=== PATIENT | female | born 1955 | race Hispanic/Latino ===

== ENCOUNTER → 2019-11-24 | Day surgery (SDC) | payer BC, MEDICARE ==
[2019-11-18 14:03] LABS: BASOPHILS % 0.3 % (0.0-1.0); EOSINOPHILS # (AUTO) 0.1 (0.0-0.4); EOSINOPHILS % 0.6 % (0.0-6.0); HEMATOCRIT 41.4 % (34.2-44.1); HEMOGLOBIN 14.1 g/dL (12.0-16.0); LYMPHOCYTES # (AUTO) 2.1 (1.0-3.2); LYMPHOCYTES % 22.6 % (18.0-39.1); MEAN CORPUSCULAR HGB CONC 34.1 g/dL (31-35); MONOCYTES # (AUTO) 0.6 (0.2-0.8); MONOCYTES % 6.6 % (4.4-11.3); NEUTROPHILS # (AUTO) 6.5 (2.1-6.9); NEUTROPHILS % 69.5 % (38.7-80.0); PLATELET COUNT 282 x10e3/uL (140-360); RED BLOOD COUNT 4.55 x10e6/uL (3.6-5.1); RED CELL DISTRIBUTION WIDTH 12.8 % (11.7-14.4)
[~2019-11-24] MED LIST: EPHEDRINE SULFATE INJ 50 MG/ML VIAL ONE; FENTANYL CITRATE/PF 100MCG/2 ML INJ ONE; HYOSCYAMINE 0.125 MG TAB ONE; LIDOCAINE HCL 2% LOCAL INJ 5 ML SDV VIAL INJ ONE; LISINOPRIL-HCT1 EACH PO; MIDAZOLAM HCL 2 MG/2 ML VIAL ONE; NIFEDIPINE ER30 M1 PO; PHENYLEPHRINE HCL 1% 10 MG/ML VIAL ONE; PROPOFOL IV EMULSION 10 MG/ML 50 ML VIAL ONE
[2019-11-24 13:15] VITALS: BP 121/86
--- NOTE | 2019-11-24 20:14 | Operative Report ---
DATE OF PROCEDURE: 11/24/2019 SURGEON: Oscar Turner MD PROCEDURE PERFORMED: Colonoscopy with polypectomy. INDICATIONS FOR PROCEDURE: Colorectal cancer screening, positive Cologuard test. MEDICATIONS: The patient was done under MAC, please see anesthesiologist's note. PROCEDURE IN DETAIL: With the patient in left lateral decubitus position, a flexible fiberoptic Olympus colonoscope was inserted into the rectum with ease and advanced all the way to the cecum. It was then withdrawn slowly. Mucosa overlying the cecum and ascending colon appeared to be within normal limits. One polyp was hot biopsied from the transverse colon. One polyp was hot biopsied from the descending colon. Diverticular disease was noted in the sigmoid colon. Two polyps were hot snared. Two polyps were hot biopsied from the sigmoid colon. A large sessile laterally spreading rectal mass was noted approximately 5 cm from the anal verge was approximately 2.5 cm in size that was partially resected with hot biopsy forceps and two hemoclips were applied. The scope was then retroflexed into the distal rectum and moderate-sized internal hemorrhoids were noted none of which was actively bleeding. The scope was then straightened out. It was subsequently withdrawn. The patient tolerated the procedure well. IMPRESSION: 1. Transverse colon polyp, hot biopsied. 2. Descending colon polyp, hot biopsied. 3. Diverticulosis. 4. Sigmoid colon polyps x4, two hot biopsied and two hot snared. 5. Rectal mass approximately 5 cm proximal to the anal verge was lateral spreading approximately 2.5 cm in size, partially resected with the hot snare and hemoclipped x2. The scope was then retroflexed into the distal rectum and moderate-sized internal hemorrhoids were noted none of which was actively bleeding. The scope was then straightened out, it was subsequently withdrawn. The patient tolerated the procedure well. PLAN: Followup histology. If mass was benign, we will proceed with a flex-sig in 3-4 weeks to remove any residual tissue in the rectum. Oscar Turner MD [facility] /[id number] cc: Jalen Card MD
== END | disposition home or self-care (01) ==
LOC: OR 08:17
PROVIDERS: ATTEND Internal Medicine Gastroenterology
DX: Z12.11 Encounter for screening for malignant neoplasm of colon (principal); D12.8 Benign neoplasm of rectum; D12.4 Benign neoplasm of descending colon; D12.5 Benign neoplasm of sigmoid colon; D12.3 Benign neoplasm of transverse colon; K21.9 Gastro-esophageal reflux disease without esophagitis; I10 Essential (primary) hypertension; K57.30 Diverticulosis of large intestine without perforation or abscess without bleeding; K62.89 Other specified diseases of anus and rectum; K64.8 Other hemorrhoids; Z01.810 Encounter for preprocedural cardiovascular examination; Z01.812 Encounter for preprocedural laboratory examination
CPT/HCPCS: 36415; 45384; 45385; 85025; 93005; J2001; J2250; J2370; J2704; J3010; 45378

== ENCOUNTER 2020-02-06 09:37 | Inpatient (IN) | payer BC, MEDICARE, OTHER ==
[~2020-02-06] VITALS: Ht 160 cm; Wt 58.5 kg
[~2020-02-06 09:37] MED LIST changes: -EPHEDRINE SULFATE INJ 50 MG/ML VIAL ONE; -FENTANYL CITRATE/PF 100MCG/2 ML INJ ONE; -HYOSCYAMINE 0.125 MG TAB ONE; -LIDOCAINE HCL 2% LOCAL INJ 5 ML SDV VIAL INJ ONE; -MIDAZOLAM HCL 2 MG/2 ML VIAL ONE; -PHENYLEPHRINE HCL 1% 10 MG/ML VIAL ONE; -PROPOFOL IV EMULSION 10 MG/ML 50 ML VIAL ONE
[2020-02-06] MEDS ORDERED: SODIUM CHLORIDE 0.9% 1000ML 1,000 ML IV STA ×2 (10:12)
[2020-02-06] MEDS ORDERED: AZITHROMYCIN 500MG/NS 250 ML 250 ML IV ONE (10:12)
[2020-02-06] MEDS ORDERED: ACETAMINOPHEN 325 MG TAB PO ONE (10:15)
[2020-02-06] MEDS ORDERED: CEFEPIME HCL 1 GM VIAL IV SCH (10:15)
[2020-02-06 10:38] LABS: BASOPHILS % 0.3 % (0.0-1.0); EOSINOPHILS % 0.3 % (0.0-6.0); LYMPHOCYTES # (AUTO) 1.9 (1.0-3.2); LYMPHOCYTES % 16.9 % (18.0-39.1); MEAN CORPUSCULAR HEMOGLOBIN 29.9 pg (28-32); MEAN CORPUSCULAR HGB CONC 34.9 g/dL (31-35); MEAN CORPUSCULAR VOLUME 85.8 fL (81-99); MONOCYTES # (AUTO) 0.3 (0.2-0.8); MONOCYTES % 2.9 % (4.4-11.3); NEUTROPHILS # (AUTO) 9.1 (2.1-6.9); NEUTROPHILS % 78.9 % (38.7-80.0); PLATELET COUNT 170 x10e3/uL (140-360); RED BLOOD COUNT 5.01 x10e6/uL (3.6-5.1); RED CELL DISTRIBUTION WIDTH 11.8 % (11.7-14.4)
[2020-02-06] MEDS: CEFEPIME 1GM/NS 0.9% 50 ML 50 ML IV SCH ×2 (10:49→22:30)
[2020-02-06 10:51] LABS: CLARITY,URINE CLOUDY (CLEAR); COLOR,URINE ORANGE (YELLOW); LEUKOCYTE ESTERASE ,URINE NEGATIVE (NEGATIVE); NITRITE,URINE NEGATIVE (NEGATIVE)
[2020-02-06 10:52] LABS: BILIRUBIN,URINE SMALL (NEGATIVE); KETONES,URINE 1+ (NEGATIVE); PROTEIN,URINE DIPSTICK 2+ (NEGATIVE); URINE UROBILINOGEN 4 mg/dL (0.2 - 1)
[2020-02-06 10:56] LABS: INR 0.9; PROTHROMBIN TIME 12.7 seconds (11.9-14.5)
[2020-02-06 11:05] LABS: ALANINE AMINOTRANSFERASE 204 IU/L (0-55); ALBUMIN 3.2 g/dL (3.5-5.0); ALBUMIN/GLOBULIN RATIO 0.9 (0.8-2.0); ALKALINE PHOSPHATASE 146 IU/L (40-150); ANION GAP 16.8 mmol/L (8-16); BLOOD UREA NITROGEN 16 mg/dL (7-26); BUN/CREATININE RATIO 21 (6-25); CALCIUM 8.5 mg/dL (8.4-10.2); CARBON DIOXIDE 22 mmol/L (22-29); CHLORIDE 95 mmol/L (98-107); CREATINE KINASE 63 IU/L (29-168); CREATININE, SERUM 0.75 mg/dL (0.57-1.11); EST GLOMERULAR FILTRATION RATE > 60 ML/MIN (60-); GLUCOSE 116 mg/dL (74-118); SODIUM 131 mmol/L (136-145)
[2020-02-06 11:12] LABS: RBC,URINE 0-5 /HPF (0-5)
[2020-02-06 11:13] LABS: BACTERIA,URINE MANY /HPF; EPITHELIAL CELLS,URINE MODERATE /LPF
[2020-02-06] MEDS ORDERED: POTASSIUM CHLORIDE 20 MEQ TAB CR PO ONE ×3 (11:13→16:00)
[2020-02-06 11:14] LABS: POTASSIUM 2.8 mmol/L (3.5-5.1)
[2020-02-06] MEDS ORDERED: POTASSIUM CHLORIDE 20MEQ/100ML 100 ML IV ONE (11:15)
--- NOTE | 2020-02-06 13:00 | NUR ---
reconciled patients home medications.
--- NOTE | 2020-02-06 13:09 | Diagnostic Imaging Report ---
EXAMINATION: CT of the chest, abdomen and pelvis with contrast. TECHNIQUE: Spiral CT images of the chest, abdomen and pelvis were performed from the lung apices to the lesser trochanters after the intravenous administration of 100 cc of Isovue 300 and the oral administration of water. Coronal and sagittal reformatted images were obtained. COMPARISON: None. CLINICAL HISTORY:Hypotension, fever, generalized weakness DISCUSSION: CHEST: LINES/TUBES: None. LUNGS AND AIRWAYS: Linear atelectatic changes in the lateral anterior right lower lobe (series 6, image 52). Additional linear opacities consistent with subsegmental atelectasis are noted in bilateral lower lobes (for example series 6, image 71 and 77). No consolidations, pulmonary nodules or masses. Airways are clear, without bronchial lesions. PLEURA: No effusion or pneumothorax. HEART AND MEDIASTINUM: 6 mm hypodense nodule in the left thyroid lobe (series 5, image 9). Likely 1.3 cm hypodense nodule in the inferior aspect of the left thyroid lobe (series 5, image 16), however, evaluation limited by streak artifact. Heart size is upper limit of normal to borderline enlarged. No pericardial effusion. Aorta is nonaneurysmal. Main pulmonary artery is normal in caliber. LYMPH NODES: No mediastinal, hilar or axillary lymphadenopathy. BONES AND SOFT TISSUES: No aggressive lytic or suspicious focal sclerotic lesions. No soft tissue abnormalities. 5 mm calcified lesion in the left breast (series 5, image 50), likely represents a calcified fibroadenoma. ABDOMEN/PELVIS: HEPATOBILIARY: No focal hepatic lesions. No intra or extrahepatic biliary ductal dilation. GALLBLADDER: Cholecystectomy clips. SPLEEN: No splenomegaly. PANCREAS: No focal masses or ductal dilatation. 3.5 x 2.6 x 2.3 cm structure with air-fluid level between the pancreatic uncinate process and third portion of the duodenum consistent with a duodenal diverticulum. ADRENALS: No adrenal nodules. KIDNEYS/URETERS: No hydronephrosis, stones, or solid mass lesions. 2.4 x 2.3 x 2.1 cm fluid density simple cyst in the left superior pole (series 2, image 55). Additional subcentimeter hypodensities in the left kidney are too small to characterize but statistically likely represent small cysts. PELVIC ORGANS/BLADDER: Bladder and uterus are unremarkable. No adnexal masses. PERITONEUM/RETROPERITONEUM: No free air or fluid. LYMPH NODES: No intra-abdominal,retroperitoneal, pelvic or inguinal lymphadenopathy. VESSELS: The celiac trunk,superior and inferior mesenteric and bilateral renal arteries are patent The portal, superior mesenteric and splenic veins are patent. Atherosclerotic calcification of the distal abdominal aorta and proximal vessels. GI TRACT: No bowel dilation or evidence of obstruction. No pericolonic inflammatory changes. Appendix is well identified and normal in caliber. Distal descending and sigmoid colon diverticulosis, without diverticulitis. BONES AND SOFT TISSUES: No aggressive lytic or suspicious focal sclerotic lesions. Grade 1 anterolisthesis of L5 on S1 secondary to bilateral pars interarticularis defects. Soft tissues are grossly unremarkable. IMPRESSION: 1. No acute abnormality in the chest, abdomen and pelvis. 2. Atelectatic changes in bilateral lower lobes, as described. No consolidations/pneumonia or masses. 3. No bowel dilation or evidence of obstruction. Distal descending and sigmoid colon diverticulosis, without diverticulitis. Signed by: Dr. Khurram Ramirez M.D. on 02/06/2020 1:06 PM
[2020-02-06] MEDS ORDERED: POTASSIUM CHLO10 ME1 PO (13:14)
--- NOTE | 2020-02-06 13:25 | NUR ---
Potassium degressed to 5meq/hr because patient was complaining that infusion was buring.
--- OUTSIDE RECORDS SUMMARY | 2020-02-06 14:03 | XMS REPORT ---
Author Author [facility] t Organization [facility] Address [address] [place] [id number] Phone Unavailable Care Team Providers Care [address] Vendor Name Role Phone Mili COATS [employer] Unavailable Problems This patient has no known problems. Allergies, Adverse Reactions, Alerts This patient has no known allergies or adverse reactions. Medications This patient has no known medications. Procedures This patient has no known procedures. Results Test Description Test Time Test Comments Results Result Comments Source CT ABDOMEN/PELVIS W 2020-02-06 12:50:00 [place] [address] Patient Name: ONI TRONCOSO MR #: [id number] : 1955 Age/Sex: 64/F Req #: [id number] Adm Physician: Ordered by: THOMAS COATS DO Report #: [id number] Location: ER Room/Bed: Procedure: [id number] CT/CT ABDOMEN/PELVIS W Exam Date: 02/06/20 Exam Time: 1220 REPORT STATUS: Signed EXAMINATION: CT of the chest, abdomen and pelvis with contrast. TECHNIQUE: Spiral CT images of the chest, abdomen and pelvis were performed from the lung apices to the lesser trochanters after the intravenous administration of 100 cc of Isovue 300 and the oral administration of water. Coronal and sagittal reformatted images were obtained. COMPARISON: None. CLINICAL HISTORY:Hypotension, fever, generalized weakness DISCUSSION: CHEST: LINES/TUBES: None. LUNGS AND AIRWAYS: Linear atelectatic changes in the lateral anterior right lower lobe (series 6, image 52). Additional linear opacities consistent with subsegmental atelectasis are noted in bilateral lower lobes (for example series 6, image 71 and 77). No consolidations, pulmonary nodules or masses. Airways are clear, without bronchial lesions. PLEURA: No effusion or pneumothorax. HEART AND MEDIASTINUM: 6 mm hypodense nodule in the left thyroid lobe (series 5, image 9). Likely 1.3 cm hypodense nodule in the inferior aspect of the left thyroid lobe (series 5, image 16), however, evaluation limited by streak artifact. Heart size is upper limit of normal to borderline enlarged. No pericardial effusion. Aorta is nonaneurysmal. Main pulmonary artery is normal in caliber. LYMPH NODES: No mediastinal, hilar or axillary lymphadenopathy. BONES AND SOFT TISSUES: No aggressive lytic or suspicious focal sclerotic lesions. No soft tissue abnormalities. 5 mm calcified lesion in the left breast (series 5, image 50), likely represents a calcified fibroadenoma. ABDOMEN/PELVIS: HEPATOBILIARY: No focal hepatic lesions. No intra or extrahepatic biliary ductal dilation. GALLBLADDER: Cholecystectomy clips. SPLEEN: No splenomegaly. PANCREAS: No focal masses or ductal dilatation. 3.5 x 2.6 x 2.3 cm structure with air-fluid level between the pancreatic uncinate process and third portion of the duodenum consistent with a duodenal diverticulum. ADRENALS: No adrenal nodules. KIDNEYS/URETERS: No hydronephrosis, stones, or solid mass lesions. 2.4 x 2.3 x 2.1 cm fluid density simple cyst in the left superior pole (series 2, image 55). Additional subcentimeter hypodensities in the left kidney are too small to characterize but statistically likely represent small cysts. PELVIC ORGANS/BLADDER: Bladder and uterus are unremarkable. No adnexal masses. PERITONEUM/RETROPERITONEUM: No free air or fluid. LYMPH NODES: No intra-abdominal,retroperitoneal, pelvic or inguinal lymphadenopathy. VESSELS: The celiac trunk,superior and inferior mesenteric and bilateral renal arteries are patent The portal, superior mesenteric and splenic veins are patent. Atherosclerotic calcification of the distal abdominal aorta and proximal vessels. GI TRACT: No bowel dilation or evidence of obstruction. No pericolonic inflammatory changes. Appendix is well identified and normal in caliber. Distal descending and sigmoid colon diverticulosis, without diverticulitis. BONES AND SOFT TISSUES: No aggressive lytic or suspicious focal sclerotic lesions. Grade 1 anterolisthesis of L5 on S1 secondary to bilateral pars interarticularis defects. Soft tissues are grossly unremarkable. IMPRESSION: 1. No acute abnormality in the chest, abdomen and pelvis. 2. Atelectatic changes in bilateral lower lobes, as described. No consolidations/pneumonia or masses. 3. No bowel dilation or evidence of obstruction. Distal descending and sigmoid colon diverticulosis, without diverticulitis. Signed by: Dr. Ari Ramirez M.D. on 02/06/2020 1:06 PM Dictated By: ARI RAMIREZ MD 1306 Transcribed By: YAMILA on 02/06/20 1306 COPY TO: THOMAS COATS DO CT CHEST W 2020-02-06 12:50:00 [place] [address] Patient Name: ONI TRONCOSO MR #: [id number] : 1955 Age/Sex: 64/F Req #: [id number] Adm Physician: Ordered by: THOMAS COATS DO Report #: [id number] Location: ER Room/Bed: Procedure: [id number] CT/CT CHEST W Exam Date: 02/06/20 Exam Time: 1220 REPORT STATUS: Signed EXAMINATION: CT of the chest, abdomen and pelvis with contrast. TECHNIQUE: Spiral CT images of the chest, abdomen and pelvis were performed from the lung apices to the lesser trochanters after the intravenous administration of 100 cc of Isovue 300 and the oral administration of water. Coronal and sagittal reformatted images were obtained. COMPARISON: None. CLINICAL HISTORY:Hypotension, fever, generalized weakness DISCUSSION: CHEST: LINES/TUBES: None. LUNGS AND AIRWAYS: Linear atelectatic changes in the lateral anterior right lower lobe (series 6, image 52). Additional linear opacities consistent with subsegmental atelectasis are noted in bilateral lower lobes (for example series 6, image 71 and 77). No consolidations, pulmonary nodules or masses. Airways are clear, without bronchial lesions. PLEURA: No effusion or pneumothorax. HEART AND MEDIASTINUM: 6 mm hypodense nodule in the left thyroid lobe (series 5, image 9). Likely 1.3 cm hypodense nodule in the inferior aspect of the left thyroid lobe (series 5, image 16), however, evaluation limited by streak artifact. Heart size is upper limit of normal to borderline enlarged. No pericardial effusion. Aorta is nonaneurysmal. Main pulmonary artery is normal in caliber. LYMPH NODES: No mediastinal, hilar or axillary lymphadenopathy. BONES AND SOFT TISSUES: No aggressive lytic or suspicious focal sclerotic lesions. No soft tissue abnormalities. 5 mm calcified lesion in the left breast (series 5, image 50), likely represents a calcified fibroadenoma. ABDOMEN/PELVIS: HEPATOBILIARY: No focal hepatic lesions. No intra or extrahepatic biliary ductal dilation. GALLBLADDER: Cholecystectomy clips. SPLEEN: No splenomegaly. PANCREAS: No focal masses or ductal dilatation. 3.5 x 2.6 x 2.3 cm structure with air-fluid level between the pancreatic uncinate process and third portion of the duodenum consistent with a duodenal diverticulum. ADRENALS: No adrenal nodules. KIDNEYS/URETERS: No hydronephrosis, stones, or solid mass lesions. 2.4 x 2.3 x 2.1 cm fluid density simple cyst in the left superior pole (series 2, image 55). Additional subcentimeter hypodensities in the left kidney are too small to characterize but statistically likely represent small cysts. PELVIC ORGANS/BLADDER: Bladder and uterus are unremarkable. No adnexal masses. PERITONEUM/RETROPERITONEUM: No free air or fluid. LYMPH NODES: No intra-abdominal,retroperitoneal, pelvic or inguinal lymphadenopathy. VESSELS: The celiac trunk,superior and inferior mesenteric and bilateral renal arteries are patent The portal, superior mesenteric and splenic veins are patent. Atherosclerotic calcification of the distal abdominal aorta and proximal vessels. GI TRACT: No bowel dilation or evidence of obstruction. No pericolonic inflammatory changes. Appendix is well identified and normal in caliber. Distal descending and sigmoid colon diverticulosis, without diverticulitis. BONES AND SOFT TISSUES: No aggressive lytic or suspicious focal sclerotic lesions. Grade 1 anterolisthesis of L5 on S1 secondary to bilateral pars interarticularis defects. Soft tissues are grossly unremarkable. IMPRESSION: 1. No acute abnormality in the chest, abdomen and pelvis. 2. Atelectatic changes in bilateral lower lobes, as described. No consolidations/pneumonia or masses. 3. No bowel dilation or evidence of obstruction. Distal descending and sigmoid colon diverticulosis, without diverticulitis. Signed by: Dr. Ari Ramirez M.D. on 02/06/2020 1:06 PM Dictated By: ARI RAMIREZ MD 1303 Transcribed By: YAMILA on 02/06/20 1300 COPY TO: THOMAS COATS DO
--- NOTE | 2020-02-06 15:16 | Emergency Department Note ---
History of Present Illnes History of Present Illness Chief Complaint: General Medicine Complaints History of Present Illness This is a 64 year old female arrived to the ED with complaints of generalized malaise and weakness. Pt with marked hypotension Historian: Patient Arrival Mode: Car Additional Treatment SHIPPING SUPPORT CLERK: n/a Onset (how long ago): day(s) (3 day) Severity: mild Duration (how long): day(s) (3 days) Timing of current episode: constant Progression: worsening Context: recent illness, recent surgery, recent immobilization, recent travel, trauma/injury, new medications, hx of DVT/PE, non-compliance w/ medications, ot her Relieving factors: none Treatments prior to arrival: none Past Medical/Family History Physician Review I have reviewed the patient's past medical and family history. Any updates have been documented here. Past Medical History Recent Fever: Yes Clinical Suspicion of Infectio: No New/Unexplained Change in Ment: No Past Medical History: Hypertension, UTI's, GERD Other Medical History: denies Past Surgical History: Cholecysctectomy Other Surgery: cyst removal from vocal cord Social History Smoking Cessation: Never Smoker Counseling Performed: No Alcohol Use: None Any Illegal Drug Use: No TB Exposure/Symptoms: No Physically hurt or threatened: No Family History Family history of heart diseas: Yes Other Last Tetanus: unkown Any Pre-Existing Lines (PICC,: No Is patient up to date on immun: No Last Flu: utd Last Pneumovax: utd Review of Systems Review of Systems Constitutional: fever, malaise, weakness, other (ill appearing and low bp) EENTM: no symptoms Cardiovascular: no symptoms Respiratory: no symptoms Gastrointestinal: no symptoms Genitourinary: no symptoms Musculoskeletal: no symptoms Neurological: no symptoms Psychological: no symptoms Endocrine: no symptoms Hematological/Lymphatic: no symptoms Review of other systems All other systems reviewed and negative. Physical Exam Related Data Allergies: Coded Allergies: No Known Allergies (Unverified , 11/18/19) Triage Vital Signs Vital Signs Date Time Temp Pulse Resp B/P (MAP) Pulse Ox O2 Delivery O2 Flow Rate FiO2 02/06/20 10:07 100.3 58 18 70/53 95 Vital signs reviewed: Yes Physical Exam CONSTITUTIONAL Constitutional: well-developed, well-nourished, ill appearing (generalized weakness and low bp ) HENT HENT: normocephalic, atraumatic, oropharynx clear/moist, nose normal HENT L/R: left ext ear normal, right ext ear normal EYES Eyes: PERRL, conjunctivae normal NECK Neck: ROM normal PULMONARY Pulmonary: effort normal, breath sounds normal CARDIOVASCULAR Cardiovascular: regular rhythm, heart sounds normal, capillary refill normal, normal rate GASTROINTESTINAL Abdominal: soft; nontender (generalized abd discomfort on exam minimal ); bowel sounds normal GENITOURINARY Genitourinary: exam deferred SKIN Skin: warm, dry MUSCULOSKELETAL Musculoskeletal: ROM normal NEUROLOGICAL Neurological: alert, oriented x 3, no gross motor or sensory deficits PSYCHOLOGICAL Psychological: mood/affect normal, judgement normal Exam - additional comments Chief Complaint Comment Patient presents to the ER with a complaint of fever, generalized weakness and left ear pain for 6 days. Patient was seen at her primary MD for her left ear pain and she was given antibiotics. Patient is a/ox3 and appears in to be in no acute distress. Results Laboratory Result Diagram: 02/06/20 1020 02/06/20 1020 Laboratory Laboratory Tests Test 02/06/20 10:41 02/06/20 10:20 White Blood Count 11.51 x10e3/uL (4.8-10.8) Red Blood Count 5.01 x10e6/uL (3.6-5.1) Hemoglobin 15.0 g/dL (12.0-16.0) Hematocrit 43.0 % (34.2-44.1) Mean Corpuscular Volume 85.8 fL (81-99) Mean Corpuscular Hemoglobin 29.9 pg (28-32) Mean Corpuscular Hemoglobin Concent 34.9 g/dL (31-35) Red Cell Distribution Width 11.8 % (11.7-14.4) Platelet Count 170 x10e3/uL (140-360) Neutrophils (%) (Auto) 78.9 % (38.7-80.0) Lymphocytes (%) (Auto) 16.9 % (18.0-39.1) Monocytes (%) (Auto) 2.9 % (4.4-11.3) Eosinophils (%) (Auto) 0.3 % (0.0-6.0) Basophils (%) (Auto) 0.3 % (0.0-1.0) Neutrophils # (Auto) 9.1 (2.1-6.9) Lymphocytes # (Auto) 1.9 (1.0-3.2) Monocytes # (Auto) 0.3 (0.2-0.8) Eosinophils # (Auto) 0.0 (0.0-0.4) Basophils # (Auto) 0.0 (0.0-0.1) Absolute Immature Granulocyte (auto 0.08 x10e3/uL (0-0.1) Prothrombin Time 12.7 seconds (11.9-14.5) Prothromb Time International Ratio 0.90 Urine Color [place] (YELLOW) Urine Clarity Cloudy (CLEAR) Urine pH 6 (5 - 7) Urine Specific [place] 1.025 (1.010-1.025) Urine Protein 2+ (NEGATIVE) Urine Glucose (UA) Negative (NEGATIVE) Urine Ketones 1+ (NEGATIVE) Urine Blood Negative (NEGATIVE) Urine Nitrite Negative (NEGATIVE) Urine Bilirubin Small (NEGATIVE) Urine Urobilinogen 4 mg/dL (0.2 - 1) Urine Leukocyte Esterase Negative (NEGATIVE) Urine RBC 0-5 /HPF (0-5) Urine WBC 11-20 /HPF (0-5) Urine Epithelial Cells Moderate /LPF (NONE) Urine Bacteria Many /HPF (NONE) Sodium Level 131 mmol/L (136-145) Potassium Level 2.8 mmol/L (3.5-5.1) Chloride Level 95 mmol/L (98-107) Carbon Dioxide Level 22 mmol/L (22-29) Anion Gap 16.8 mmol/L (8-16) Blood Urea Nitrogen 16 mg/dL (7-26) Creatinine 0.75 mg/dL (0.57-1.11) Estimat Glomerular Filtration Rate > 60 ML/MIN (60-) BUN/Creatinine Ratio 21 (6-25) Glucose Level 116 mg/dL (74-118) Lactic Acid Level 1.7 mmol/L (0.5-2.0) Calcium Level 8.5 mg/dL (8.4-10.2) Total Bilirubin 1.0 mg/dL (0.2-1.2) Aspartate Amino Transf (AST/SGOT) 265 IU/L (5-34) Alanine Aminotransferase (ALT/SGPT) 204 IU/L (0-55) Alkaline Phosphatase 146 IU/L (40-150) Creatine Kinase 63 IU/L (29-168) Creatine Kinase MB 0.40 ng/mL (0-5.0) Troponin I 0.043 ng/mL (0-0.300) Total Protein 6.7 g/dL (6.5-8.1) Albumin 3.2 g/dL (3.5-5.0) Globulin 3.5 g/dL (2.3-3.5) Albumin/Globulin Ratio 0.9 (0.8-2.0) Lab results reviewed: Yes Imaging Impressions ct brain IMPRESSION: 1. No acute abnormality in the chest, abdomen and pelvis. 2. Atelectatic changes in bilateral lower lobes, as described. No consolidations/pneumonia or masses. 3. No bowel dilation or evidence of obstruction. Distal descending and sigmoid colon diverticulosis, without diverticulitis. Signed by: Dr. Ari Cueva M.D. on 02/06/2020 1:06 PM Dictated By: ARI CUEVA MD [address] ct abd IMPRESSION: 1. No acute abnormality in the chest, abdomen and pelvis. 2. Atelectatic changes in bilateral lower lobes, as described. No consolidations/pneumonia or masses. 3. No bowel dilation or evidence of obstruction. Distal descending and sigmoid colon diverticulosis, without diverticulitis. Signed by: Dr. Ari Cueva M.D. on 02/06/2020 1:06 PM Dictated By: ARI CUEVA MD 1306 Transcribed By: YAMILA on 02/06/20 1306 Critical Care Time Subsequent provider I assumed direction of critical care for this patient from another provider of my specialty. Assessment & Plan Reassessment Reassessment 64y f presented to ed c/o gen weakness low bp no feeling well fo several days - noted low bp pt ill appearing - concern for sepsis - lab EKG ct dick ct abd orderted - Assessment & Plan Final Impression: (1) Hypotension (2) Hypokalemia (3) Elevated LFTs Assessment & Plan discussed lab ct results plan of care and need for admit pt agrees spoke /w Dr Card will admit Depart Disposition: ADMITTED Last Vital Signs Date Time Temp Pulse Resp B/P (MAP) Pulse Ox O2 Delivery O2 Flow Rate FiO2 02/06/20 14:20 70 16 100 02/06/20 13:10 95/56 02/06/20 11:12 98.7 Home Meds Reported Medications Potassium Chloride (POTASSIUM CHLORIDE) 10 Meq Tab.er.prt, 10 MEQ PO DAILY, TAB 02/06/20 Lisinopril/Hydrochlorothiazide (LISINOPRIL-HCTZ 20-12.5 MG TAB) 1 Each Tablet, 1 TAB PO DAILY 11/18/19 Nifedipine (NIFEDIPINE ER) 30 Mg Tab.er.24, 30 MG PO DAILY 11/18/19 Medications in the ED Sodium Chloride 1,000 ml @ 0 mls/hr Q0M STAT IV Last administered on 02/06/20at 10:45; Admin Dose 999 MLS/HR; Start 02/06/20 at 10:12; Stop 02/06/20 at 10:20; Status DC Sodium Chloride 1,000 ml @ 0 mls/hr Q0M STAT IV Last administered on 02/06/20at 10:45; Admin Dose 999 MLS/HR; Start 02/06/20 at 10:12; Stop 02/06/20 at 10:20; Status DC Acetaminophen 650 mg ONCE ONCE PO Last administered on 02/06/20at 10:47; Admin Dose 650 MG; Start 02/06/20 at 10:15; Stop 02/06/20 at 10:23; Status DC Cefepime HCl 1 gm Q12H IV ; Start 02/06/20 at 10:15; Stop 02/06/20 at 10:24; Status DC Azithromycin 250 ml @ 200 mls/hr NOW ONCE IV Last administered on 02/06/20at 11:15; Admin Dose 200 MLS/HR; Start 02/06/20 at 10:12; Stop 02/06/20 at 11:26; Status DC THOMAS COATS, February 06, 2020 15:33
[2020-02-06] MEDS ORDERED: POTASSIUM CHLORIDE 20 MEQ TAB CR PO STA (15:35)
--- NOTE | 2020-02-06 18:28 | NUR ---
Received patient from ER. Respiration even and unlabored without SOB. Call light in reach. Denies pain at this time. Patient ambulates around the room with non-skid socks on.
[2020-02-06 20:00] VITALS: BP 107/65
[2020-02-06 21:00] VITALS: BP 107/65
[2020-02-06] MEDS ORDERED: SODIUM CHLORIDE 0.9% 250ML 250 ML ONE (22:04)
[2020-02-06] MEDS ORDERED: IOPAMIDOL 370 MG/ML 200 ML INFUS..BTL INJ ONE (22:15)
[2020-02-06] MEDS ORDERED: SODIUM CHLORIDE 0.9% 50ML 50 ML ONE (22:15)
[2020-02-07] VITALS (9 sets, daily range): BP systolic 103–107; BP diastolic 50–65
--- NOTE | 2020-02-07 04:11 | NUR ---
Call placed to Dr. Card for pt temp noted at 102.1 via answering service.
[2020-02-07] MEDS: ACETAMINOPHEN 325 MG TAB PO PRN ×2 (04:40→11:24)
[2020-02-07 05:41] LABS: BASOPHILS % 0.2 % (0.0-1.0); HEMATOCRIT 33.2 % (34.2-44.1); HEMOGLOBIN 11.6 g/dL (12.0-16.0); LYMPHOCYTES % 20.9 % (18.0-39.1); MEAN CORPUSCULAR HEMOGLOBIN 30.9 pg (28-32); MEAN CORPUSCULAR HGB CONC 34.9 g/dL (31-35); MEAN CORPUSCULAR VOLUME 88.3 fL (81-99); MONOCYTES # (AUTO) 0.2 (0.2-0.8); MONOCYTES % 2.5 % (4.4-11.3); NEUTROPHILS # (AUTO) 7.3 (2.1-6.9); NEUTROPHILS % 75.5 % (38.7-80.0); PLATELET COUNT 147 x10e3/uL (140-360); RED BLOOD COUNT 3.76 x10e6/uL (3.6-5.1)
[2020-02-07 06:02] LABS: ALANINE AMINOTRANSFERASE 177 IU/L (0-55); ALBUMIN 2.6 g/dL (3.5-5.0); ALKALINE PHOSPHATASE 107 IU/L (40-150); ANION GAP 14.6 mmol/L (8-16); BLOOD UREA NITROGEN 11 mg/dL (7-26); BUN/CREATININE RATIO 20 (6-25); CALCIUM 7.3 mg/dL (8.4-10.2); CARBON DIOXIDE 20 mmol/L (22-29); CHLORIDE 104 mmol/L (98-107); CREATINE KINASE 80 IU/L (29-168); CREATININE, SERUM 0.56 mg/dL (0.57-1.11); EST GLOMERULAR FILTRATION RATE > 60 ML/MIN (60-); GLUCOSE 97 mg/dL (74-118); POTASSIUM 3.6 mmol/L (3.5-5.1); SODIUM 135 mmol/L (136-145)
--- NOTE | 2020-02-07 07:00 | NUR ---
received bedside report. pt is alert oob, no s/s of distress. call light within reach and instructed pt to call RN for help
[2020-02-07 08:11] LABS: BAND NEUTROPHILS % (MANUAL) 4 %; LYMPHOCYTES % (MANUAL) 14 % (19-48); MONOCYTES % (MANUAL) 2 % (3.4-9.0); NEUTROPHILS % (MANUAL) 79 % (40-74); PLATELET ESTIMATE ADEQUATE; PLATELET MORPHOLOGY COMMENT NORMAL; RBC MORPHOLOGY COMMENT NORMAL
[2020-02-07] MEDS: CEFEPIME 1GM/NS 0.9% 50 ML 50 ML IV SCH ×2 (09:03→22:30)
--- NOTE | 2020-02-07 12:09 | Consultation ---
DATE OF CONSULTATION: REASON FOR CONSULTATION: Fever and chills. HISTORY OF PRESENT ILLNESS: This patient is a 64-year-old female, who comes in with fever and chills, earache on the left side. The patient has been sick for a week, came to the emergency room. She is not feeling well. The patient comes in and started on antibiotic. She is complaining also of congestion and she said she is feeling better. When she first came, her white count was 11.5, hemoglobin 15, and hematocrit 43. Sodium 135 and potassium was 2.8 on admission. The patient is being admitted and I am asked to see her. Her COVID-19 is negative. PHYSICAL EXAMINATION: GENERAL: She is currently alert and oriented. Does not seem to be in acute distress. VITAL SIGNS: T-max 100.3. HEENT: She is not icteric. NECK: Supple. CHEST: Clear bilateral. HEART: S1 and S2. No S3, S4, or murmur. ABDOMEN: Soft. Bowel sounds present. No tenderness. EXTREMITIES: No edema. SKIN: No rash. PAST MEDICAL HISTORY: Hypertension. PAST SURGICAL HISTORY: Cholecystectomy. ALLERGIES: NKA. SOCIAL HISTORY: There is no smoking, drug abuse, or alcohol abuse. FAMILY HISTORY: Otherwise hypertension. REVIEW OF SYSTEMS: Besides the congestion and ear pain, which actually better today, she denies any. She had a CAT scan of abdomen and pelvis, which was . She had a CAT scan of the chest, which also showed no acute finding. PHYSICAL EXAMINATION: GENERAL: She is currently alert and oriented. Does not seem to be in acute distress. VITAL SIGNS: Stable, currently afebrile. HEENT: She is not icteric. NECK: Supple. CHEST: Clear. HEART: S1 and S2. No S3, S4, or murmur. ABDOMEN: Soft. IMPRESSION: Fever, concerned about sinusitis. We will put her on Rocephin 2 g q.[address] of the sinuses. Await blood cultures. Recheck CBC. Recheck chem panel. Discussed with the patient. We will follow. MD CAMERON Telles/MELVIN /[id number]
--- NOTE | 2020-02-07 13:09 | History and Physical ---
CHIEF COMPLAINT: A 64-year-old female patient comes in with high fever and decreased blood pressure. HISTORY OF PRESENT ILLNESS: Ms. Winter Mac started out with some nighttime fevers, came to see the office, complains of some left ear pain and failure. The patient did not have any symptoms and was not treated with antibiotics. The patient had a blood workup done. The white count was normal. Sedimentation rate was elevated and CRP was elevated. The patient continues to have fever and on the day of admission, the patient had low blood pressure, feels fatigued, feels tired, taken nifedipine, lisinopril, and potassium and came to emergency room, was admitted to the hospital. Initially, sepsis workup was done. Lactic acid was negative and white count was not too elevated. The patient is admitted to the hospital for fever of normal origin and leukocytosis. PAST MEDICAL HISTORY: History of hypertension. MEDICATIONS: She takes at home lisinopril, hydrochlorothiazide, nifedipine, and potassium chloride. FAMILY HISTORY: Positive for father, mother and brother with acute myocardial infarction, heart disease, otherwise negative. SOCIAL HISTORY: No EtOH. No IV drug abuse. No history of smoking either. REVIEW OF SYSTEMS: Negative for chest pains. No shortness of breath. No palpitations. No arthralgias. no MYALGIAS. No tenderness anywhere in the body except for a two that she describes in the left molars. Otherwise, no sinus tenderness. No sinus pain. No congestion. No cough. No leg pains. No pain on ambulation and no abdominal pain and/or bleeds. No vaginal bleeds either. PHYSICAL EXAMINATION: VITAL SIGNS: On arrival, temperature 97.5, today temperature is 100.9 is T-max, respirations of 19, blood pressure is 107/65, and pulse oximetry of 99% on room air. HEENT: Normocephalic, atraumatic. Pupils reactive to light and accommodation. CVS: S1 and S2 normal. Regular rate and rhythm. No murmurs present. ABDOMEN: Nontender, nondistended. EXTREMITIES: No clubbing, no cyanosis, no edema. Calf; no calf tenderness, no calf pain present either. LABORATORY VALUES: Initial white count of 11.5 with left shift 9.1, and hemoglobin and hematocrit are normal. Chemistries; sodium is 131, potassium of 2.8, and chloride of 95. AST and ALT of 265 and 204. Troponin is less than 0.043. Lactic acid is 1.7. Coags are normal. Repeat, today's white count is 9.69 after Maxipime. Hemoglobin 11.6 and hematocrit of 33.2. Chemistries; sodium 135, potassium is up to 3.6, EGFR is about 60. Liver enzymes are trending down. IMAGING STUDIES: CT of the chest and CT of the abdomen and pelvis, did not reveal any abnormalities focusing on fever. ASSESSMENT: 1. Fever of unknown origin. 2. Leukocytosis. 3. Hypertension. 4. Hyponatremia. 5. Hypokalemia probably from diuresis. 6. Elevated liver function tests. PLAN: Volume status is normal at this time. The patient's vital signs are stable. Going to have acute hepatitis panel, probably viral in etiology. We will continue to monitor the patient. Consult with Dr. Wagner has been done. Further recommendation per clinical course. We will follow the patient's white count and also wait for cultures, which were done after admission and administration of antibiotics. Further recommendation per clinical course. We will continue to monitor the patient and also await Dr. Wagner's consultation. MD DENG Julio/MODL /[id number]
--- NOTE | 2020-02-07 18:01 | NUR ---
pt is sleeping on the bedside couch, no s/s of distress noted
--- NOTE | 2020-02-07 19:24 | NUR ---
Received pt in bed awake, no s/sx of distress no c/o of at this time. IVF infusing no diff, bed in low position, call light and personal items within reach.
[2020-02-08] VITALS: BP 113/55
[2020-02-08] MEDS: ACETAMINOPHEN 325 MG TAB PO PRN (01:22)
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
[2020-02-08 04:00] VITALS: BP 107/62
[2020-02-08 06:23] LABS: BASOPHILS % 0.4 % (0.0-1.0); EOSINOPHILS % 0.1 % (0.0-6.0); HEMATOCRIT 36.4 % (34.2-44.1); HEMOGLOBIN 12.7 g/dL (12.0-16.0); LYMPHOCYTES % 28.4 % (18.0-39.1); MEAN CORPUSCULAR HGB CONC 34.9 g/dL (31-35); MEAN CORPUSCULAR VOLUME 88.8 fL (81-99); MONOCYTES # (AUTO) 0.5 (0.2-0.8); MONOCYTES % 4.5 % (4.4-11.3); NEUTROPHILS # (AUTO) 6.8 (2.1-6.9); NEUTROPHILS % 65.8 % (38.7-80.0); PLATELET COUNT 189 x10e3/uL (140-360); RED CELL DISTRIBUTION WIDTH 12.1 % (11.7-14.4)
[2020-02-08 06:44] LABS: ALANINE AMINOTRANSFERASE 151 IU/L (0-55); ALBUMIN 2.8 g/dL (3.5-5.0); ALBUMIN/GLOBULIN RATIO 0.9 (0.8-2.0); ALKALINE PHOSPHATASE 126 IU/L (40-150); ANION GAP 13.3 mmol/L (8-16); BLOOD UREA NITROGEN 7 mg/dL (7-26); BUN/CREATININE RATIO 12 (6-25); CALCIUM 8.5 mg/dL (8.4-10.2); CARBON DIOXIDE 22 mmol/L (22-29); CHLORIDE 104 mmol/L (98-107); CREATININE, SERUM 0.57 mg/dL (0.57-1.11); EST GLOMERULAR FILTRATION RATE > 60 ML/MIN (60-); GLUCOSE 87 mg/dL (74-118); POTASSIUM 3.3 mmol/L (3.5-5.1); SODIUM 136 mmol/L (136-145)
[2020-02-08 06:57] LABS: BAND NEUTROPHILS % (MANUAL) 8 %; LYMPHOCYTES % (MANUAL) 24 % (19-48); MONOCYTES % (MANUAL) 3 % (3.4-9.0); NEUTROPHILS % (MANUAL) 63 % (40-74); PLATELET ESTIMATE ADEQUATE; PLATELET MORPHOLOGY COMMENT NORMAL; RBC MORPHOLOGY COMMENT NORMAL
--- NOTE | 2020-02-08 07:00 | NUR ---
received bedside report. pt is alert resting bed, no s/s of distress. call light within reach and instructed pt to call RN for help
--- NOTE | 2020-02-08 07:33 | Progress Note ---
DATE: SUBJECTIVE: The patient is a 64-year-old female, who came in with fever and hypertensive episode. The patient currently has a low-grade fever, apparently at 100. No other complaints. No chest pain or shortness of breath. No nausea. No vomiting. No diarrhea. OBJECTIVE: VITAL SIGNS: Temperature is 97.3, T-max of 100.8, pulse of 89, blood pressure is 107/62, pulse oximetry of 96% on room air. HEENT: Normocephalic and atraumatic. Pupils are reactive. Sinuses are congested and tender. CVS: S1 and S2 normal. Regular rhythm. ABDOMEN: Nontender and nondistended. EXTREMITIES: No clubbing, no cyanosis, no edema. IMAGING STUDIES: Head CT still pending. Chest CT and abdominal CT were mentioned for was normal. MICROBIOLOGY: No growth in blood cultures. LABORATORY VALUES: White count has come down to 10.38, hemoglobin of 12.7, hematocrit 36.4. Chemistries are within normal limits. Potassium is 3.3, BUN of 7, creatinine of 0.57. ASSESSMENT: Ms. Winter Mac with: 1. Fever, probably sinus type sinusitis in origin. White count has come down. The patient is feeling better, although she has a low-grade fever, and also awaiting CT scan. 2. Hypertension with hypertensive episode. The patient was on lisinopril, hydrochlorothiazide. We will go and take off the lisinopril and hydrochlorothiazide, and just put on nifedipine 30. 3. Potassium will be held back. At this time, we will replace potassium for today of 20 mEq p.o. We will continue monitoring the patient, possibly can be discharged on Augmentin if it is okay with Dr. Wagner. Further recommendation per clinical course. We will continue to monitor the patient. Currently, the patient is on cefepime. MD DENG Julio/VALERIEL /[id number]
[2020-02-08 07:37] VITALS: BP 116/69
[2020-02-08 07:40] VITALS: BP 116/69
[2020-02-08] MEDS ORDERED: POTASSIUM CHLORIDE 20 MEQ TAB CR PO ONE (07:45)
[2020-02-08] MEDS: CEFEPIME 1GM/NS 0.9% 50 ML 50 ML IV SCH (09:30)
--- NOTE | 2020-02-08 09:38 | Progress Note ---
DATE: SUBJECTIVE: The patient is seen and evaluated, available labs and notes reviewed. Discussed with Dr. Wagner. Discussed with staff. REVIEW OF SYSTEMS: No nausea, vomiting, fever, chills, chest pain, shortness of breath, headaches, rash, dysuria, or diarrhea. OBJECTIVE: VITAL SIGNS: Temperature 97.9, pulse is 79, respirations 16, blood pressure 116/69, maximum temperature was 100.8 last night, midnight. GENERAL: Alert and oriented, in no acute distress. Ambulatory. CV: S1, S2. CHEST: Equal expansion. Clear to auscultation. No acute distress. ABDOMEN: Soft, nontender. No distention. HEENT: Moist. No pallor. No JVD. EXTREMITIES: Moves all. MEDICATIONS: The patient is on cefepime. LABORATORY STUDIES: White count of 10.38, hemoglobin 12.7, platelet 189. Sodium 136, potassium 3.3, creatinine 0.57. Serology coronavirus PCR not detected. Hepatitis panel is pending. Microbiology; blood culture on 02/05 is negative 24 hours. RADIOLOGY STUDIES: CT of the chest from 02/05, showed no acute abnormality in the chest, abdomen, or pelvis. CT of the face is pending. ASSESSMENT AND PLAN: Fever. Consider sinusitis. Follow up with CT of the face to evaluate the sinuses. Microbiology studies negative so far. White counts are within normal limit. Continue monitor the patient clinically and follow up with the labs. Discharge planning possibly in progress depending on the facial CT. Attending progress note from today noted in regard to discharge antibiotics. Discussed with the nurse. Please refer to chart for more information. Discussed with Dr. Wagner in detail. Dictated by Adriano Breaux PA-C (Al) Arley Wagner MD /MODL /[id number]
--- NOTE | 2020-02-08 10:03 | Diagnostic Imaging Report ---
CT MAXIO FAC/PARANAS WO HISTORY: Sinusitis COMPARISON: None. TECHNIQUE: CT of the sinuses was performed without intravenous contrast. Coronal and sagittal reformations were created. One or more of the following dose reduction techniques were used: Automated exposure control, adjustment of the mA and/or kV according to patient size, and/or utilization of iterative reconstruction technique. DISCUSSION: Mild right maxillary sinus mucosal thickening is present. Otherwise, the paranasal sinuses, major drainage pathways, and nasal cavities are clear. Other: Nasal septum: Minimally deviated to the left. Agger Nasi: Clear bilaterally. Turbinates: The middle turbinates are partially pneumatized. Lovely cells: None. Lamina papyracea: Intact. Cribriform plates: Symmetric. Up to 7 mm deep to the fovea ethmoidalis. Olfactory recesses: Clear. Optic canals: Not dehiscent. Onodi cells: None. Sphenoid sinuses: The lateral recesses are aerated. The sphenoid septum is midline. The internal carotid arteries do not bulge into the sphenoid sinuses. The internal carotid arteries are from the sphenoid sinuses by a thin plate of bone (measuring up to 1 mm). Orbits: Unremarkable. Intracranial compartment: Carotid siphon and intradural vertebral artery calcifications are present. Temporal bones: Unremarkable. Other visualized bones: Unremarkable. Soft tissues: Left nose piercing. IMPRESSION: 1. Mild right maxillary sinus mucosal thickening. 2. Otherwise, the paranasal sinuses, major drainage pathways, and nasal cavities are clear. Signed by: Dr. Aurelio Miller M.D. on 02/08/2020 10:00 AM
[2020-02-08 11:47] VITALS: BP 106/58
[2020-02-08 15:34] VITALS: BP 122/61
== END 2020-02-08 16:58 | disposition home or self-care (01) | DRG 641 ==
LOC: ER 09:37 → ERHOLD 10:19 → MED/SURG3 18:28
PROVIDERS: ADMIT Family Medicine; ATTEND Family Medicine
DX: E87.1 Hypo-osmolality and hyponatremia (principal); E87.6 Hypokalemia; J32.9 Chronic sinusitis, unspecified; D72.829 Elevated white blood cell count, unspecified; I10 Essential (primary) hypertension; R94.5 Abnormal results of liver function studies; K21.9 Gastro-esophageal reflux disease without esophagitis; Z90.49 Acquired absence of other specified parts of digestive tract; I95.9 Hypotension, unspecified; Z82.49 Family history of ischemic heart disease and other diseases of the circulatory system; Z11.59 Encounter for screening for other viral diseases; Z87.440 Personal history of urinary (tract) infections
CPT/HCPCS: 36415; 70486; 71260; 74177; 80053; 81001; 82550; 82553; 83605; 84443; 84484; 85025; 85610; 87040; 87635; 93005; 99284; J0456; J0692; J3480; J7030; J7050; Q9967